=== PATIENT | female | born 1970 | race Caucasian/White ===

== ENCOUNTER 2025-04-07 16:36 | Emergency (ER) | payer OTHER, SELFPAY ==
[2025-04-07 17:06] VITALS: BP 163/94
[2025-04-07 17:28] LABS: Hematocrit 37.9 % (37.0-47.0); Hemoglobin 12.5 g/dL (12.0-16.0); Mean Corp Hgb Conc. 33.0 g/dL (33.0-37.0); Mean Corpuscular Volume 78.8 fL (81.0-99.0); Nucleated Red Blood Cells % 0 %; Platelet Count 332 10^3/uL (130-400); Red Cell Dist. Width 14.6 % (11.5-14.5)
[2025-04-07 17:40] LABS: AST (SGOT) 23 U/L (14-36); Albumin 4.0 g/dl (3.5-5.0); Alkaline Phosphatase 86 U/L (38-126); Blood Urea Nitrogen 17 mg/dl (7-17); Calcium 9.7 mg/dl (8.4-10.2); Carbon Dioxide 22 mmol/L (22-30); Chloride 105 mmol/L (98-107); Glucose 203 mg/dl (70-99); Magnesium 2.4 mg/dl (1.6-2.3); Potassium 4.0 mmol/L (3.5-5.1); Sodium 137 mmol/L (135-145); Total Protein 6.5 g/dl (6.3-8.2); eGFR > 60.00
[2025-04-07 17:55] LABS: ALT (SGPT) 24 U/L (0-35)
[2025-04-07 18:25] VITALS: BP 129/101
--- NOTE | 2025-04-07 18:34 | ED.GENMED ---
History of Present Illness
General
Chief Complaint: Cardiac Symptoms
Source: patient
Exam Limitations: none
Time Seen by Provider: 04/07/25 18:19
History of Present Illness
History of Present Illness:
See MDM
Past History
Past History
ED Past Medical History: None
ED Past Surgical History: Gynecological
Social History
Tobacco: Non-smoker
Personal:
Living: with family
Employment: Not employed
Phy Exam
Physical Exam
Physical Exam:
See MDM
Course
Orders/Labs/Results
Orders:
Orders
04/07/25 16:39
ECG [Electrocardiogram (*1)] Urgent
Reason for Study: Abnormal EKG
Other Reason for Exam: post SVT via EMS
EKG- Treatment ONCE
04/07/25 17:20
Complete Blood Count/With Diff Urgent
Comprehensive Metabolic Panel Urgent
Magnesium Urgent
TSH Reflex To Free T4 Urgent
Abnormal Lab Results
04/07/25
17:20
WBC 11.0 H 10^3/uL
(4.8-10.8)
MCV 78.8 L fL
(81.0-99.0)
MCH 26.0 L pg
(27.0-31.0)
RDW 14.6 H %
(11.5-14.5)
Abs Immat Gran (auto) 0.1 H 10^3/uL
(0-0.05)
Absolute Neuts (auto) 9.5 H 10^3/uL
(1.4-6.5)
Absolute Lymphs (auto) 1.0 L 10^3/uL
(1.2-3.4)
Immature Gran % 0.8 H %
(0-0.5)
Neutrophils % 86.0 H %
(42.2-75.2)
Lymphocytes % 9.1 L %
(20.5-51.1)
Glucose 203 H mg/dl
(70-99)
Magnesium 2.4 H mg/dl
(1.6-2.3)
04/07/25 17:20
04/07/25 17:20
Vital Signs
Initial and Last Documented VS:
Initial Vital Signs
Temp Pulse Resp BP Pulse Ox
98.3 F 98 18 163/94 96
04/07/25 17:06 04/07/25 17:06 04/07/25 17:06 04/07/25 17:06 04/07/25 17:06
Last Documented Vital Signs
Temp Pulse Resp BP Pulse Ox
98.3 F 97 21 129/101 96
04/07/25 17:06 04/07/25 18:24 04/07/25 18:24 04/07/25 18:25 04/07/25 18:24
MDM/Problems Addressed
Differential Diagnosis Includes:
Note:
CHIEF COMPLAINT(S)
Palpitations and fast heart rate.
HISTORY OF PRESENT ILLNESS
The patient is a 54-year-old female who presented to the emergency department with complaints of palpitations and a rapid heart rate. According to the patient, she had not experienced these symptoms before. The symptoms began without any clear
precipitating factors, although the patient mentioned experiencing significant family stress, which could potentially be related. Emergency Medical Services (EMS) noted a fast heart rate upon arrival and administered adenosine twice to restore
normal sinus rhythm. The patient reported that the administration of adenosine was uncomfortable, but it was effective in resolving the rapid heart rate. There is no history of previous episodes or prior hospitalizations for similar complaints.
The patient denies taking any prescription medications or recent qspc-kyd-btotklk medications such as pseudoephedrine. Blood work was performed, which was reported to be normal. An Electrocardiogram (ECG) conducted post-treatment did not show any
underlying abnormalities or evidence of myocardial ischemia. The patients condition improved after treatment.
ADDITIONAL HISTORY OBTAINED FROM SOURCES OTHER THAN THE PATIENT
Per EMS, the patient was noted to have a rapid heart rate and was treated with adenosine in the field, which effectively terminated the arrhythmic episode.
SOCIAL DETERMINANTS AFFECTING HEALTH
The patient reported experiencing significant family stress, which she believes might have contributed to the onset of her symptoms.
EXTERNAL RECORDS REVIEWED
An Electrocardiogram (ECG) and blood work conducted in the emergency department were reviewed, both of which were unremarkable.
PHYSICAL EXAM
General: Alert, no acute distress.
Skin: Warm, dry.
Head: Normocephalic, atraumatic
Neck: Appears supple, trachea midline.
Eyes, Ears, Nose, Mouth, and Throat: Oral mucosa moist.
Cardiovascular: No signs of cyanosis. Regular rate and rhythm. Questionable murmur noted
Respiratory: Respirations are non-labored.
Abdomen: Non-distended
Musculoskeletal: No deformities
Neurological: No focal neurological deficit observed.
Psychiatric: Cooperative, appropriate mood and affect.
PROBLEM LIST
- Acute problem: Supraventricular Tachycardia (SVT), resolved.
- Chronic problem: Possible mitral valve prolapse.
PLAN
1. Observation and follow-up with a courier delivery driver for further evaluation, including possible echocardiogram to assess cardiac structure and function.
2. Education on potential triggers and signs of recurrence.
3. Advising the patient on managing stress which could potentially contribute to the symptoms.
4. Monitoring for any recurrence of symptoms before further treatment considerations, such as beta-blockers, if episodes become frequent.
DIFFERENTIAL DIAGNOSIS
The Differential Diagnosis includes, in no particular order and is not limited to:
1. Supraventricular Tachycardia
2. Atrial Fibrillation
3. Atrial Flutter
4. Mitral Valve Prolapse
5. Anxiety or Panic Attacks
6. Hyperthyroidism
7. Electrolyte Imbalance
8. Cardiac Arrhythmia due to other causes
9. Medication-Induced Tachycardia (though no meds are involved here)
10. Pheochromocytoma
Disposition:
SUMMARY OF ENCOUNTER
The patient, a 54-year-old female, was seen in the emergency department for palpitations and a rapid heart rate, identified as supraventricular tachycardia (SVT). She was treated pre-hospital by EMS with adenosine, which successfully restored her to
normal sinus rhythm. Upon arrival, her rhythm remained stable. The emergency department confirmed normal thyroid function and normal EKG findings with no ischemic changes, although a questionable heart murmur was noted on examination. Blood work
performed showed no clinically significant abnormalities except for a mild elevation in blood sugar. We discussed the need for outpatient follow-up with a primary care physician (PCP) and referred her to a courier delivery driver for further evaluation,
including a potential echocardiogram.
DISPOSITION
Discharge
ASSESSMENT
This patient presented with resolved Supraventricular Tachycardia (SVT), with normal EKG findings and vital signs now stable. There was a mild elevation in blood sugar. A potential heart murmur was detected, requiring further evaluation.
EMERGENCY TREATMENTS ADMINISTERED
Adenosine was administered by EMS, which terminated the arrhythmia.
PLAN
1. Follow up with primary care to monitor blood sugar levels.
2. Outpatient follow-up with cardiology for further evaluation, including consideration of an echocardiogram to assess the potential heart murmur.
3. Patient educated on recognizing signs of SVT and instructed on return precautions if symptoms recur.
INDEPENDENT REVIEW OF LABS AND INTERPRETATION OF TESTS
- My independent review of blood work is that there are no clinically relevant abnormalities, except for a mild elevation in blood sugar.
- My independent review of EKG indicates no ischemic changes.
PATIENT EDUCATION AND COUNSELING
The patient was educated on the importance of follow-up with primary care for blood sugar management and cardiology evaluation for the heart murmur. Discussed recognizing symptoms of SVT and advised on when to seek medical attention.
FOLLOW-UP INSTRUCTIONS
- Please schedule a follow-up visit with the primary care physician to monitor blood sugar.
- Arrange an outpatient follow-up with a courier delivery driver for further assessment and possible echocardiogram.
MEDICAL DECISION MAKING
1. Number and Complexity of Problems Addressed: Chronic conditions affecting care were not identified. Possible new finding of mitral valve prolapse.
Differential Diagnosis: 1. Supraventricular Tachycardia, 2. Mitral Valve Prolapse, 3. Anxiety or Panic Attacks, 4. Hyperthyroidism, 5. Electrolyte Imbalance, 6. Cardiac Arrhythmia due to other causes.
2. Data:
- Category 1: External records reviewed: I reviewed the patients blood work and EKG.
- Category 3: No independent discussions or consultations noted.
3. Risk: Consideration of Admission/Observation: Escalation of care including admission/observation was considered given the complexity and risk of the patients presenting complaint, exam findings, and/or their underlying comorbidities. However,
ultimately, I feel the patient is safe for outpatient management with close follow-up. Reasoning: Work-up reassuring, does not reveal any acute life/organ-threatening processes, patients symptoms well controlled upon reevaluation, reexamination is
reassuring, vitals are stable, patient agreeable with discharge, reliable for follow-up.
DIAGNOSIS
- Supraventricular Tachycardia (SVT), Resolved (ICD-10: I47.1)
- Mild hyperglycemia (ICD-10: R73.01)
- Possible Mitral Valve Prolapse (ICD-10: I34.1)
*Pulse Oximetry
SaO2: 96
Oxygen Mode of Delivery: Room air
Patient hypoxic: no
*EKG
Interpreted by ED Provider?: Yes
Interpretation: normal (Sinus rhythm at 96 bpm, normal axis, intervals within normal limits, no STEMI)
*Critical Care Note
Total Time (30-74mins, 75-104mins- exclusive of procedures): Not Applicable
ED Attending Note
-
Portions of this chart may have been created with voice recognition software.� Occasional wrong word or��sound alike� substitutions may have occurred due to the inherent limitations of voice recognition software.
Discharge Plan
Departure
Patient Disposition: Home (Routine Discharge)
Date of Disposition: 04/07/25
Time of Disposition: 18:35
Patient with high blood pressure during this ER visit?: Yes
Discharge Problem:
SVT (supraventricular tachycardia)
Prescriptions:
No Action
ondansetron 4 MG tablet,disintegrating
4 mg PO TIDPRN PRN (Reason: nausea) Qty: 12 0RF
Referrals:
García Jackson MD [Active, Cardiology]
Activity Restrictions/Additional Instructions:
Please return for any worsening symptoms.
You may return at any time if you have further concerns.
Please follow up with your doctor at the first available appointment, preferably this week.
Please make an appointment to see the courier delivery driver.
Thank you for choosing [facility].
Interventions
Interventions:
*Risk Screen - Suicide Last Done: 04/07/25 17:06
*General Assessment Last Done: 04/07/25 17:06
*Neglect/Abuse Screening Last Done: 04/07/25 17:06
*ED- Fall Risk Assessment Last Done: 04/07/25 18:26
*ED COVID-19 Vaccine History Last Done: 04/07/25 18:26
ED- Pulmonary Assessment Last Done: 04/07/25 18:24
ED- Cardiac Assessment Last Done: 04/07/25 18:24
Discharge Date and Time
Print Language: VIET[place]ESE
[2025-04-07 19:01] VITALS: BP 139/80
== END 2025-04-07 19:24 | disposition home or self-care (01) ==
LOC: EMR 16:36
PROVIDERS: Emergency Medicine; EMERGENCY PHYSICIAN Student in an Organized Health Care Education/Training Program; FAMILY PHYSICIAN Family Medicine
DX: I47.10 Supraventricular tachycardia, unspecified (principal); R73.9 Hyperglycemia, unspecified; Z63.8 Other specified problems related to primary support group
CPT/HCPCS: 99284; 80053; 83735; 84443; 85025; 93005

== ENCOUNTER 2025-04-14 10:14 | Emergency (ER) | payer OTHER, SELFPAY ==
[2025-04-14 10:20] VITALS: BP 134/94
--- NOTE | 2025-04-14 11:09 | ED.GENMED ---
History of Present Illness
General
Chief Complaint: Chest Pain
Source: patient
Exam Limitations: none
Time Seen by Provider: 04/14/25 10:49
Nursing documentation reviewed up to this point in time: agreed with
History of Present Illness
History of Present Illness:
Patient diagnosed with SVT last week, which was treated successfully with adenosine, presents to ED secondary to recurrent chest pounding sensation, while she was at home watching TV this morning. Patient had woken up earlier in the morning and had
breakfast already, when her symptoms started. Patient admits to chest tightness sensation. Denies shortness of breath, nausea, dizziness, or diaphoresis. Denies recent illness. Denies recent change in medications or diet. Denies recent travel
or surgery. Denies previous history of similar symptoms, aside from last week. There is family history of atrial fibrillation, with her parents, requiring pacemaker placement. Denies recent change in activities. Denies increased stress level.
Denies drinking alcohol. Denies change in diet. Patient was recommended to see vision therapist last week, but has not had opportunity to make an appointment yet.
Past History
Past History
ED Past Medical History: None
ED Past Surgical History: Gynecological
Social History
Tobacco: Non-smoker
Personal:
Living: with family
Employment: Not employed
Review of Systems
Review of Systems
Allergies reviewed?: Yes
All Other Systems: ROS reviewed and negative except as documented in HPI and ROS
Constitutional: Reports no symptoms
EENT: Reports no symptoms
Respiratory: Reports no symptoms
Cardiac: Reports chest pain and palpitations
ABD/GI: Reports no symptoms
Musculoskeletal: Reports no symptoms
Skin: Reports no symptoms
Neurological: Reports no symptoms
Phy Exam
Physical Exam
Physical Exam:
Physical Exam
General: no apparent distress, not acutely ill. afebrile
Head: nc/at.
Neck: supple. no meningeal signs.
Heart: s1/s2 regular rate and rhythm. systolic ejection mumur
Lungs: no acute respiratory distress. clear bilaterally
Abdomen: normal bowel sounds. not tender.
Neuro: alert and oriented x 3. no focal neurological deficits
Skin: no rash
Psychiatric: well kept. interactive and cooperative
Extremities: no edema. no calf tenderness.
Scores
[id number] Score for Afib Stroke Risk
Age in Years (65=0, 65-74=1, >/=75=2): <65
Sex (Female=+1): Female
Congestive Heart Failure History (Yes=+1): No
Hypertension History (Yes=+1): No
Stroke/TIA/Thromboembolism History (Yes=+2): No
Vascular Disease History (Yes=+1): No
Diabetes Mellitus (Yes=+1): No
Score: 1
Anticoagulation Recommendations: Consider anticoagulation (as validated in nonvalvular fib)
Heart Score for Chest Pain Patients
STEMI patient?: No
History: Slightly or Non-Suspicious
ECG: Normal
Age: >45 - <65 years
Risk Factors: No Risk Factors
Troponin: </= Normal Limit
Heart Score for Chest Pain Patients: 1
Heart Score Risk: 2.5% MACE over next 6 weeks
Course
Orders/Labs/Results
Orders:
Orders
04/14/25
Electrocardiogram (*1) Stat
Reason for Study: Chest Pain
Comment: DONE NO ORDER ENTERED
04/14/25 10:20
Electrocardiogram (*1) Urgent
Reason for Study: Chest Pain
EKG- Treatment ONCE
04/14/25 11:03
Add On- LAB Urgent
Tests Added?: magnesium, TSH to reflex free T4
Complete Blood Count/With Diff Urgent
Comprehensive Metabolic Panel Urgent
Magnesium Urgent
Comment: ADD ON
Troponin I Urgent
04/14/25 11:09
0.9% Sodium Chloride 500 ml [Nss] 500 ml IV BOLUS
04/14/25 11:11
D-Dimer Urgent
04/14/25 12:56
Aspirin Chewable [Low Strength Aspirin] 81 mg PO NOW STA
Metoprolol Xl [Toprol Xl] 25 mg PO NOW STA
Abnormal Lab Results
04/14/25
11:03
MCV 80.1 L fL
(81.0-99.0)
MCH 25.9 L pg
(27.0-31.0)
MCHC 32.3 L g/dL
(33.0-37.0)
RDW 15.1 H %
(11.5-14.5)
Absolute Monos (auto) 0.9 H 10^3/uL
(0.1-0.6)
Monocytes % 10.8 H %
(1.7-9.3)
Glucose 101 H mg/dl
(70-99)
04/14/25 11:03
04/14/25 11:03
Vital Signs
Initial and Last Documented VS:
Initial Vital Signs
Pulse Resp BP Pulse Ox
92 22 134/94 97
04/14/25 10:20 04/14/25 10:20 04/14/25 10:20 04/14/25 10:20
Last Documented Vital Signs
Pulse Resp BP Pulse Ox
77 15 122/76 95
04/14/25 14:30 04/14/25 14:30 04/14/25 14:00 04/14/25 14:30
MDM/Problems Addressed
MDM/Problems Addressed:
Shortly after arrival to ED, patient reports resolution of heart pounding sensation. Repeat EKG reveals normal sinus rhythm. Patient observed for 3 hours, without recurrent arrhythmia.
Discussed with on-call vision therapist, Dr. JONI Cisneros, who feels the patient can be discharged home with following recommendation: 81 mg aspirin daily along with metoprolol 25 mg daily, along with outpatient follow-up.
Patient and spouse agree with treatment plan. Patient referred to [facility] via chest pain hotline.
*Pulse Oximetry
SaO2: 97
Oxygen Mode of Delivery: Room air
Patient hypoxic: no
*Critical Care Note
Total Time (30-74mins, 75-104mins- exclusive of procedures): Not Applicable
ED Attending Note
-
Portions of this chart may have been created with voice recognition software.� Occasional wrong word or��sound alike� substitutions may have occurred due to the inherent limitations of voice recognition software.
Discharge Plan
Departure
Patient Disposition: Home (Routine Discharge)
Date of Disposition: 04/14/25
Time of Disposition: 14:03
Patient with high blood pressure during this ER visit?: Yes
Discharge Problem:
Atrial fibrillation
Instructions: Atrial fibrillation (DC), Chest Pain DCA Follow Up
Prescriptions:
New
metoprolol succinate [Toprol XL] 25 mg tablet extended release 24 hr
25 mg PO DAILY Qty: 30 0RF
No Action
ondansetron 4 MG tablet,disintegrating
4 mg PO TIDPRN PRN (Reason: nausea) Qty: 12 0RF
Referrals:
Elias Cisneros MD [Active, Cardiology]
UNKNOWN - PT DOES,NOT KNOW [Family Provider]
Activity Restrictions/Additional Instructions:
As discussed, please follow-up with referred vision therapist for further evaluation and treatment. In the meantime, recommend taking [id number] 81 mg aspirin daily, along with prescribed medication. Your prescription has been sent
electronically to [facility] pharmacy in [place].
Interventions
Interventions:
*Risk Screen - Suicide Last Done: 04/14/25 10:20
*General Assessment Last Done: 04/14/25 10:20
*Neglect/Abuse Screening Last Done: 04/14/25 10:20
*ED- Fall Risk Assessment Last Done: 04/14/25 10:20
*ED COVID-19 Vaccine History Last Done: 04/14/25 10:20
*Nursing Disposition Last Done: 04/14/25 14:51
ED- Cardiac Assessment Last Done: 04/14/25 11:00
Discharge Date and Time
Discharge Date/Time: 04/14/25 14:51
Print Language: FAROESE
[2025-04-14 11:13] VITALS: BP 119/95
[2025-04-14] MEDS: NSS 500 IV (11:25)
[2025-04-14 11:27] LABS: Hematocrit 40.2 % (37.0-47.0); Hemoglobin 13.0 g/dL (12.0-16.0); Mean Corp Hgb Conc. 32.3 g/dL (33.0-37.0); Mean Corpuscular Volume 80.1 fL (81.0-99.0); Nucleated Red Blood Cells % 0 %; Platelet Count 314 10^3/uL (130-400); Red Cell Dist. Width 15.1 % (11.5-14.5)
[2025-04-14 11:40] LABS: ALT (SGPT) 22 U/L (0-35); AST (SGOT) 24 U/L (14-36); Albumin 4.2 g/dl (3.5-5.0); Alkaline Phosphatase 85 U/L (38-126); Blood Urea Nitrogen 11 mg/dl (7-17); Calcium 9.5 mg/dl (8.4-10.2); Carbon Dioxide 28 mmol/L (22-30); Chloride 107 mmol/L (98-107); Glucose 101 mg/dl (70-99); Magnesium 2.3 mg/dl (1.6-2.3); Potassium 3.7 mmol/L (3.5-5.1); Sodium 139 mmol/L (135-145); Total Protein 6.9 g/dl (6.3-8.2); eGFR > 60.00
[2025-04-14 11:50] LABS: Troponin I < 0.012 ng/ml
[2025-04-14 12:00] VITALS: BP 128/75
[2025-04-14 12:12] LABS: D-Dimer < 0.27 ug/mlFEU (0.00-0.50)
[2025-04-14 13:00] VITALS: BP 127/83
[2025-04-14] MEDS: LOW STRENGTH ASPIRIN 81 MG PO (13:27)
[2025-04-14] MEDS: TOPROL XL 25 MG PO (13:27)
[2025-04-14 14:00] VITALS: BP 122/76
== END 2025-04-14 14:51 | disposition home or self-care (01) ==
LOC: EMR 10:14
PROVIDERS: Emergency Medicine; EMERGENCY PHYSICIAN Emergency Medicine
DX: I48.91 Unspecified atrial fibrillation (principal); R07.89 Other chest pain; I47.10 Supraventricular tachycardia, unspecified
CPT/HCPCS: 99283; 96360; 80053; 83735; 84484; 85025; 85379; 93005

== ENCOUNTER → 2025-04-30 07:11 | Outpatient (REF) | payer OTHER, SELFPAY | LOC: RCS 07:11 | PROVIDERS: ATTENDING PHYSICIAN Internal Medicine Cardiovascular Disease; FAMILY PHYSICIAN Family Medicine | DX: I48.91 Unspecified atrial fibrillation (principal) | CPT/HCPCS: 93306 ==